=== PATIENT | male | born 1955 | race Caucasian/White ===

== ENCOUNTER 2018-04-07 08:32 | Day surgery (SDC) | payer BC ==
[2018-04-06 11:51] VITALS: BMI 32.3
[2018-04-07] MEDS ORDERED: Oxymetazoline HCl 0.05% ( 15 ML ) ONE ×2 (09:23→11:34)
[2018-04-07] MEDS ORDERED: Midazolam HCl 2 mg/2 ml Vial ONE (10:13)
[2018-04-07 10:40] LABS: Anion Gap 12 mmol/L (10-20); BUN (Urea Nitrogen) 14 mg/dL (8.4-25.7); Calc. Creatinine Clearance 136 mL/min (70-130); Calcium 9.6 mg/dL (7.8-10.44); Carbon Dioxide 26 mmol/L (23-31); Chloride 105 mmol/L (98-107); Estimated GFR-MDRD Greater than 90; Glucose 100 mg/dL (80-115); Potassium 3.7 mmol/L (3.5-5.1); Sodium 139 mmol/L (136-145)
[2018-04-07] MEDS ORDERED: Bacitracin Zinc Ointment 30 gm TUBE ONE (11:34)
[2018-04-07] MEDS ORDERED: Lidocaine 1% w/Epinephrine 1:100K 30 ML VIAL ONE (11:34)
[2018-04-07] MEDS ORDERED: Fentanyl 250 MCG/5 ML VIAL ONE (11:37)
--- NOTE | 2018-04-07 12:20 | EKG ---
Test Reason : PREOP Blood Pressure : / mmHG Vent. Rate : 075 BPM Atrial Rate : 075 BPM P-R Int : 174 ms QRS Dur : 126 ms QT Int : 404 ms P-R-T Axes : 044 004 035 degrees QTc Int : 451 ms Sinus rhythm with occasional Premature ventricular complexes and Premature atrial complexes Non-specific intra-ventricular conduction block Abnormal ECG No previous ECGs available Confirmed by MENDEL FREEMAN ([id number]) on 04/07/2018 12:20:04 PM Referred By: KUSHAL Confirmed By:MENDEL FREEMAN
[2018-04-07] MEDS ORDERED: Fentanyl 100 MCG/2 ML VIAL ONE (12:54)
[2018-04-07] MEDS ORDERED: Lidocaine 1% PF 5 ML VIAL ONE (14:34)
[2018-04-07] MEDS ORDERED: PROPOFOL 200 MG/20 ML VIAL ONE (14:34)
[2018-04-07] MEDS ORDERED: ePHEDrine/0.9% NaCl/PF SYRINGE 50 mg/10 ml ONE (14:34)
[2018-04-07] MEDS ORDERED: Dexamethasone 20 MG/5 ML VIAL ONE (14:34)
[2018-04-07] MEDS ORDERED: Succinylcholine Chloride 20 MG/ML 10 ml SYRINGE FS ONE (14:34)
[2018-04-07] MEDS ORDERED: Ondansetron HCl/PF 4 MG/2 ML Vial ONE (14:34)
--- NOTE | 2018-04-07 18:51 | OP ---
PREOPERATIVE DIAGNOSES: 1. Chronic rhinosinusitis. 2. Nasal septal deviation. 3. Bilateral inferior turbinate hypertrophy. 4. Nasal obstruction. POSTOPERATIVE DIAGNOSES: 1. Chronic rhinosinusitis. 2. Nasal septal deviation. 3. Bilateral inferior turbinate hypertrophy. 4. Nasal obstruction. PROCEDURES: 1. Bilateral endoscopic sinus surgery, total ethmoidectomies. 2. Bilateral endoscopic sinus surgery, maxillary antrostomies. 3. Bilateral endoscopic sinus surgery, frontal sinusotomies. 4. Nasal septoplasty. 5. Bilateral inferior turbinate submucosal resection. SURGEON: Ricki Person M.D. ESTIMATED BLOOD LOSS: 0 mL COMPLICATIONS: None. ANESTHESIA: GETA. PROCEDURE IN DETAIL: Patient was taken to the operating room and placed supine on the table. General endotracheal anesthesia was obtained by the Anesthesia staff. Tube was secured in the left lower lip. Patient was then placed in the beach chair position, and Afrin pledgets were p laced in the nasal cavity. Injections of 1% lidocaine with 1:100,000 epinephrine were made into the nasal septum as well as the inferior turbinates. Patient was then prepped and draped in standard surg ical fashion for nasal surgery. Following this, the Afrin pledgets were removed. A So[place] incision w as made on the left nasal septum. Submucoperichondrial dissection was performed. The deviated portio ns of the septum included portions of the cartilage and the bony septum. These isolated areas were re moved using three cutting rongeurs. There was noted to be a large dorsal and caudal strut, left intac t for support of the nose. The mucoperichondrial flaps were then reapproximated using a 4-0 gut stitc h. Any straight pieces of cartilage were crushed prior to this and placed between the mucoperichondr ial flaps. Following this, the inferior turbinates were then punctured with a submucosal coblation wa nd, and submucosal coblations were performed of multiple areas of the inferior portion of the anterio r inferior turbinate. Please note that the submucosal microdebrider was used to submucosally resect the anterior and inferi or portions of the inferior turbinates bilaterally. Following this, inferior turbinates were lateral ly fractured with a Gillett elevator. Following this, the 0 degree scope was advanced into the middle meatus, middle turbinate was gently medialized using a Gillett elevator. The ball-ended probe was then used to anteriorly fracture the uncinate process bilaterally. Using the straight and curved microde brider, the uncinate process was removed and the natural maxillary ostia was identified bilaterally a nd was widened using the curved microdebrider and straight Blakesley forceps bilaterally. Following this, the ethmoidal bulla was identified bilaterally and was punctured on its medial and inferior asp ect with the 0 degree microdebrider. Ethmoidal bulla was removed. Following this, the grand lamella was identified and a blunt ended puncture was made into the posterior ethmoidal cells. Working from posterior to anterior, the ethmoidal cells were opened in a mucosal-sparing technique. Following th is, the 45-degree scope and the 40-degree microdebrider blade were further used to open the frontal r ecess cells exposing the frontal ostia bilaterally. The frontal ostia was then widened bilaterally u sing the curved microdebrider. Following this, the nasal cavity was irrigated. Mirapex were placed. Vieyra splints were placed and secured.
== END 2018-04-07 14:19 | disposition home or self-care (01) ==
LOC: SDC 08:32
PROVIDERS: ATTEND Otolaryngology Plastic Surgery within the Head & Neck
PROC: 09BV8ZZ Excision of Left Ethmoid Sinus, Via Natural or Artificial Opening Endoscopic (ICD-10-PCS; principal; 2018-04-07)
PROC: 09BM8ZZ Excision of Nasal Septum, Via Natural or Artificial Opening Endoscopic (ICD-10-PCS; principal; 2018-04-07)
PROC: 09BU8ZZ Excision of Right Ethmoid Sinus, Via Natural or Artificial Opening Endoscopic (ICD-10-PCS; principal; 2018-04-07)
PROC: 09BL8ZZ Excision of Nasal Turbinate, Via Natural or Artificial Opening Endoscopic (ICD-10-PCS; principal; 2018-04-07)
DX: J32.0 Chronic maxillary sinusitis (principal); J32.1 Chronic frontal sinusitis; J32.3 Chronic sphenoidal sinusitis; J34.2 Deviated nasal septum; J32.2 Chronic ethmoidal sinusitis; J34.3 Hypertrophy of nasal turbinates; R42 Dizziness and giddiness; I10 Essential (primary) hypertension; E78.00 Pure hypercholesterolemia, unspecified; Z79.899 Other long term (current) drug therapy
CPT/HCPCS: 80048; 93005; 93010; 96374; J1100; J2001; J2250; J2405; J2704; J3010

== ENCOUNTER 2019-08-22 16:25 | Outpatient (CLI) | payer MEDICARE | END 2019-08-22 16:26 | disposition home or self-care (01) | LOC: CTENTCT 16:25 | PROVIDERS: ATTEND Otolaryngology Plastic Surgery within the Head & Neck | DX: J32.9 Chronic sinusitis, unspecified (principal) | CPT/HCPCS: 70486 ==

== ENCOUNTER 2019-09-15 08:35 | Outpatient (CLI) | payer MEDICARE ==
--- NOTE | 2019-09-15 14:08 | MRI ---
MRI CERVICAL SPINE WITHOUT CONTRAST: 09/15/2019 HISTORY: A 63-year-old male with ICD-10: M50.20, other cervical degenerative disk disease, unspecified cervic al region. Cervicalgia. COMPARISON: None. FINDINGS: Vertebral body heights are maintained. Cervical spinal cord is normal in size and signal. Images are degraded by patient motion. Disk space narrowing is mild to moderate at C5-C6 and C6-C7. There are un cinate process osteophytes encroaching upon the bilateral neural foramina to varying degrees at diffe rent levels. Broad-based disk-osteophytic bar complexes encroach upon the anterior aspect of the spin al canal to varying degrees at different levels, especially at C5-C6 and C6-C7. There is multilevel b ilateral mild and moderate facet DJD. C1-C2: No central stenosis. C2-C3: No central stenosis. Mild bilateral neural foraminal stenosis. C3-C4: Mild to moderate central spinal canal stenosis. Severe bilateral neural foraminal stenosis. C4-C5: Large right uncinate process osteophytes cause very severe right neural foraminal stenosis and effacement of the right side of the spinal canal and thecal sac. Moderate central spinal canal steno sis. Ligamentum flavum thickening. Severe left neural foraminal stenosis, to a lesser degree than the right. C5-C6: Mild to moderate central spinal canal stenosis. Moderate to severe right neural foraminal sten osis. Severe left neural foraminal stenosis. C6-C7: Mild to moderate central spinal canal stenosis. Severe right neural foraminal stenosis. Modera te to severe left neural foraminal stenosis. C7-T1: No central stenosis. Mild right neural foraminal stenosis. Mild to moderate left neural forami nal stenosis. IMPRESSION: 1. Cervical spondylosis with multilevel mild and moderate degenerative disease and multilevel mild an d moderate facet osteoarthrosis. 2. Multilevel bilateral severe neural foraminal stenosis. POS: TPC
--- NOTE | 2019-09-15 15:27 | NM ---
NUCLEAR MEDICINE BRAIN TOMOGRAPHIC IMAGING: HISTORY: Parkinson's disease. TECHNIQUE: A nuclear medicine tomographic brain scan was performed with administration of 4.5 millicuries of I-1 23 Ioflupane. FINDINGS: Uptake of the radiopharmaceutical was seen in a round configuration within both basal ganglia rather than a comma shaped configuration. IMPRESSION: The uptake in the basal ganglia is consistent with parkinsonian syndrome. POS: CET
== END 2019-09-15 08:36 | disposition home or self-care (01) ==
LOC: NM 08:35
PROVIDERS: ATTEND Psychiatry & Neurology Neurology
DX: G20 Parkinson's disease (principal); M50.20 Other cervical disc displacement, unspecified cervical region; M47.812 Spondylosis without myelopathy or radiculopathy, cervical region; M48.02 Spinal stenosis, cervical region
CPT/HCPCS: 72141; 78803; A9584

== ENCOUNTER 2024-03-04 17:31 | Inpatient (IN) | payer MEDICARE ==
[2024-03-04] MEDS ORDERED: Cefepime 2 GM VIAL ONE (17:58)
[2024-03-04 18:36] LABS: #Basophils Less than 0.03 10x3/uL (0.0-0.2); #Eosinphils Less than 0.03 10x3/uL (0.0-0.7); %Basophils 0.2 % (0.0-1.0); %Eosinophils 0.1 % (0.0-10.0); %Monocytes 8.2 % (0.0-10.0); %Neutrophils 78.4 % (42.0-75.0); Hematocrit 29.1 % (42.0-52.0); Hemoglobin 9.7 g/dL (14.0-18.0); Mean Corpuscular HGB CONC 33.3 g/dL (32.0-36.0); Mean Corpuscular Hemoglobin 27.8 pg (27.0-31.0); Mean Corpuscular Volume 83.4 fL (78.0-98.0); Mean Platelet Volume 9.2 fL (7.4-10.4); Platelet Count 301 10x3/uL (130-400); RBC Distribution Width 14.1 % (11.5-14.5); Red Blood Cell (RBC) Count 3.49 mill/uL (4.70-6.10)
[2024-03-04 18:55] LABS: ALT (SGPT) 90 U/L (8-55); AST (SGOT) 101 U/L (5-34); Albumin 2.4 g/dL (3.4-4.8); Alkaline Phosphatase 338 U/L (40-110); Anion Gap 7 mmol/L (10-20); BUN (Urea Nitrogen) 17 mg/dL (8.4-25.7); Bilirubin, Total 0.5 mg/dL (0.2-1.2); Calc. Creatinine Clearance 0 mL/min (70-130); Calcium 8.6 mg/dL (7.8-10.44); Carbon Dioxide 24 mmol/L (23-31); Chloride 99 mmol/L (98-107); Estimated GFR 101; Globulin 3.1 g/dL (2.4-3.5); Glucose 135 mg/dL (80-115); Lipase 21 U/L (8-78); Potassium 3.2 mmol/L (3.5-5.1); Protein, Total 5.5 g/dL (5.8-8.1); Sodium 127 mmol/L (136-145)
[2024-03-04 19:00] LABS: Troponin I 0.013 ng/mL (< 0.028)
[2024-03-04 19:05] LABS: Bilirubin Negative (Negative); Blood, Urine Negative (Negative); CAUTI Indications for Culture Alt mental st,lethar; Clarity Clear (Clear); Glucose, Urine (Dipstick) Normal (Negative); Ketone, Urine Negative (Negative); Leukocyte Negative Leu/uL (Negative); Nitrite Negative (Negative); Protein, Urine (Dipstick) Negative (Neg-Trace); RBC/HPF 0-3 HPF (0-3); Squamous Epithelial None Seen HPF (0-3); Urobilinogen Normal mg/dL (Less than 2); WBC/HPF 0-3 HPF (0-3)
[2024-03-04 19:09] LABS: Bacteria/HPF 1+ HPF (None Seen)
[2024-03-04 19:10] LABS: Urine Culture Reflex No No
[2024-03-04 19:57] LABS: Influenza A by NAA Not Detected (NotDetected); Influenza B by NAA Not Detected (NotDetected); SARS-CoV-2 NAA Rapid Test Not Detected (NotDetected)
[2024-03-04] MEDS ORDERED: Acetaminophen 500 MG TAB ONE (20:04)
[2024-03-04] MEDS ORDERED: Ondansetron PF 4 MG/2 ML Vial IVP PRN (20:33)
[2024-03-04] MEDS ORDERED: Ondansetron ODT 4 MG TAB PO PRN (20:33)
[2024-03-04] MEDS ORDERED: Acetaminophen 650 MG Suppository PR PRN (20:33)
[2024-03-04] MEDS ORDERED: Electrolyte Replacement Protocol 1 EACH FS SCH (20:45)
[2024-03-04] MEDS: Vancomycin (BATCH) 2 GM in Premix 1 BAG IVPB SCH (21:43)
[2024-03-04] MEDS: Lactated Ringer's 1,000 ML IV SCH (22:02)
[2024-03-04] MEDS ORDERED: Polyethylene Glycol 3350 17 GM Packet PO PRN (22:09)
[2024-03-04 22:49] LABS: Magnesium 1.7 mg/dL (1.6-2.6)
[2024-03-04] MEDS: Potassium Chloride 20 MEQ TAB PO SCH (23:04)
[2024-03-04] MEDS: Polyethylene Glycol 3350 17 GM Packet PO SCH (23:04)
[2024-03-05] MEDS: Carbidopa/Levodopa 25-100 mg Tablet PO SCH ×2 (01:18→05:54)
[2024-03-05 01:32] VITALS: BMI 31.1
[2024-03-05 04:53] LABS: Anion Gap 7 mmol/L (10-20); BUN (Urea Nitrogen) 12 mg/dL (8.4-25.7); Calc. Creatinine Clearance 174 mL/min (70-130); Calcium 8.1 mg/dL (7.8-10.44); Carbon Dioxide 23 mmol/L (23-31); Chloride 112 mmol/L (98-107); Estimated GFR 107; Glucose 92 mg/dL (80-115); Magnesium 1.8 mg/dL (1.6-2.6); Potassium 3.2 mmol/L (3.5-5.1); Sodium 139 mmol/L (136-145)
[2024-03-05 04:59] LABS: #Basophils Less than 0.03 10x3/uL (0.0-0.2); %Basophils 0.2 % (0.0-1.0); %Eosinophils 0.6 % (0.0-10.0); %Lymphocytes 18.1 % (21.0-51.0); %Monocytes 9.4 % (0.0-10.0); %Neutrophils 69.8 % (42.0-75.0); Hematocrit 26.3 % (42.0-52.0); Hemoglobin 8.6 g/dL (14.0-18.0); Mean Corpuscular HGB CONC 32.7 g/dL (32.0-36.0); Mean Corpuscular Hemoglobin 28.2 pg (27.0-31.0); Mean Corpuscular Volume 86.2 fL (78.0-98.0); Mean Platelet Volume 9.1 fL (7.4-10.4); Platelet Count 271 10x3/uL (130-400); RBC Distribution Width 14.3 % (11.5-14.5); Red Blood Cell (RBC) Count 3.05 mill/uL (4.70-6.10)
[2024-03-05] MEDS: Magnesium 2 GM/50 ML(in water) 2 GM in Premix 1 BAG IVPB SCH (09:18)
[2024-03-05] MEDS: Potassium Chloride 20 MEQ TAB PO SCH ×2 (09:19→22:37)
[2024-03-05] MEDS: Enoxaparin 40 MG (0.4 mL) SYRINGE SC SCH (09:19)
[2024-03-05] MEDS: Zonisamide 25 MG CAP PO SCH (20:31)
[2024-03-05 21:56] LABS: Potassium 3.5 mmol/L (3.5-5.1)
[2024-03-06 04:15] LABS: #Basophils Less than 0.03 10x3/uL (0.0-0.2); %Basophils 0.2 % (0.0-1.0); %Eosinophils 1.5 % (0.0-10.0); %Monocytes 8.6 % (0.0-10.0); %Neutrophils 66.9 % (42.0-75.0); Hematocrit 28.3 % (42.0-52.0); Hemoglobin 9.1 g/dL (14.0-18.0); Mean Corpuscular HGB CONC 32.2 g/dL (32.0-36.0); Mean Corpuscular Hemoglobin 27.9 pg (27.0-31.0); Mean Corpuscular Volume 86.8 fL (78.0-98.0); Mean Platelet Volume 9.2 fL (7.4-10.4); Platelet Count 282 10x3/uL (130-400); RBC Distribution Width 14.5 % (11.5-14.5); Red Blood Cell (RBC) Count 3.26 mill/uL (4.70-6.10)
[2024-03-06 04:55] LABS: ALT (SGPT) 77 U/L (8-55); AST (SGOT) 92 U/L (5-34); Albumin 2.1 g/dL (3.4-4.8); Alkaline Phosphatase 258 U/L (40-110); Anion Gap 9 mmol/L (10-20); BUN (Urea Nitrogen) 9 mg/dL (8.4-25.7); Bilirubin, Total 0.4 mg/dL (0.2-1.2); Calc. Creatinine Clearance 171 mL/min (70-130); Calcium 8.3 mg/dL (7.8-10.44); Carbon Dioxide 22 mmol/L (23-31); Chloride 110 mmol/L (98-107); Estimated GFR 106; Globulin 2.7 g/dL (2.4-3.5); Glucose 85 mg/dL (80-115); Potassium 3.7 mmol/L (3.5-5.1); Protein, Total 4.8 g/dL (5.8-8.1); Sodium 137 mmol/L (136-145)
[2024-03-06] MEDS: Magnesium 2 GM/50 ML(in water) 2 GM in Premix 1 BAG IVPB SCH (09:02)
[2024-03-06] MEDS: Cefepime 2 GM in Sodium Chloride 0.9% 100 ML IVPB SCH (19:21)
[2024-03-06] MEDS: Acetaminophen 325 MG TAB PO PRN (20:35)
[2024-03-07 04:10] LABS: #Basophils Less than 0.03 10x3/uL (0.0-0.2); %Basophils 0.2 % (0.0-1.0); %Lymphocytes 19.6 % (21.0-51.0); %Monocytes 7.8 % (0.0-10.0); %Neutrophils 68.4 % (42.0-75.0); Hematocrit 30.3 % (42.0-52.0); Hemoglobin 9.8 g/dL (14.0-18.0); Mean Corpuscular HGB CONC 32.3 g/dL (32.0-36.0); Mean Corpuscular Hemoglobin 28.1 pg (27.0-31.0); Mean Corpuscular Volume 86.8 fL (78.0-98.0); Platelet Count 322 10x3/uL (130-400); RBC Distribution Width 14.5 % (11.5-14.5); Red Blood Cell (RBC) Count 3.49 mill/uL (4.70-6.10)
[2024-03-07 04:23] LABS: ALT (SGPT) 73 U/L (8-55); AST (SGOT) 82 U/L (5-34); Albumin 2.2 g/dL (3.4-4.8); Alkaline Phosphatase 247 U/L (40-110); Anion Gap 12 mmol/L (10-20); BUN (Urea Nitrogen) 9 mg/dL (8.4-25.7); Bilirubin, Total 0.5 mg/dL (0.2-1.2); Calc. Creatinine Clearance 162 mL/min (70-130); Calcium 8.4 mg/dL (7.8-10.44); Carbon Dioxide 22 mmol/L (23-31); Chloride 112 mmol/L (98-107); Estimated GFR 104; Globulin 2.9 g/dL (2.4-3.5); Glucose 86 mg/dL (80-115); Potassium 3.7 mmol/L (3.5-5.1); Protein, Total 5.1 g/dL (5.8-8.1); Sodium 142 mmol/L (136-145)
[2024-03-07 12:02] LABS: HBCM Index 0.06 S/CO (0-0.79); HBsAg Index 0.27 S/CO (0-0.99); Hep A IgM AB NONREACTIVE (NonReactive); Hep A IgM S/CO 0.16 S/CO (0-0.79); Hep B Surf Ag NONREACTIVE S/CO (NonReactive); Hep C IgG Ab NONREACTIVE S/CO (NonReactive); Hep C Index 0.05 S/CO (0-0.79); Hepatitis B Core IgM Abs NONREACTIVE S/CO (NonReactive)
[2024-03-07 16:07] VITALS: BMI 31.1
[2024-03-08 04:40] LABS: #Basophils 0.04 10x3/uL (0.0-0.2); %Basophils 0.5 % (0.0-1.0); %Eosinophils 1.6 % (0.0-10.0); %Monocytes 6.9 % (0.0-10.0); %Neutrophils 67.1 % (42.0-75.0); Hematocrit 30.9 % (42.0-52.0); Hemoglobin 9.9 g/dL (14.0-18.0); Mean Corpuscular Hemoglobin 27.3 pg (27.0-31.0); Mean Corpuscular Volume 85.1 fL (78.0-98.0); Mean Platelet Volume 9.2 fL (7.4-10.4); Platelet Count 345 10x3/uL (130-400); RBC Distribution Width 14.5 % (11.5-14.5); Red Blood Cell (RBC) Count 3.63 mill/uL (4.70-6.10)
[2024-03-08 05:13] LABS: ALT (SGPT) 49 U/L (8-55); AST (SGOT) 80 U/L (5-34); Albumin 2.3 g/dL (3.4-4.8); Alkaline Phosphatase 242 U/L (40-110); Anion Gap 9 mmol/L (10-20); BUN (Urea Nitrogen) 10 mg/dL (8.4-25.7); Bilirubin, Total 0.5 mg/dL (0.2-1.2); Calc. Creatinine Clearance 152 mL/min (70-130); Calcium 8.5 mg/dL (7.8-10.44); Carbon Dioxide 21 mmol/L (23-31); Chloride 109 mmol/L (98-107); Estimated GFR 102; Globulin 2.9 g/dL (2.4-3.5); Glucose 87 mg/dL (80-115); Protein, Total 5.2 g/dL (5.8-8.1); Sodium 135 mmol/L (136-145)
[2024-03-09 03:58] LABS: #Basophils 0.03 10x3/uL (0.0-0.2); %Basophils 0.4 % (0.0-1.0); %Eosinophils 1.1 % (0.0-10.0); %Lymphocytes 18.2 % (21.0-51.0); %Monocytes 7.8 % (0.0-10.0); %Neutrophils 71.2 % (42.0-75.0); Hemoglobin 10.4 g/dL (14.0-18.0); Mean Corpuscular HGB CONC 31.5 g/dL (32.0-36.0); Mean Corpuscular Hemoglobin 27.7 pg (27.0-31.0); Mean Corpuscular Volume 87.8 fL (78.0-98.0); Mean Platelet Volume 9.1 fL (7.4-10.4); Platelet Count 359 10x3/uL (130-400); RBC Distribution Width 14.6 % (11.5-14.5); Red Blood Cell (RBC) Count 3.76 mill/uL (4.70-6.10)
[2024-03-09 04:34] LABS: ALT (SGPT) 40 U/L (8-55); AST (SGOT) 56 U/L (5-34); Albumin 2.4 g/dL (3.4-4.8); Alkaline Phosphatase 235 U/L (40-110); Anion Gap 11 mmol/L (10-20); BUN (Urea Nitrogen) 9 mg/dL (8.4-25.7); Bilirubin, Total 0.6 mg/dL (0.2-1.2); Calc. Creatinine Clearance 157 mL/min (70-130); Calcium 8.9 mg/dL (7.8-10.44); Carbon Dioxide 23 mmol/L (23-31); Chloride 110 mmol/L (98-107); Estimated GFR 103; Globulin 3.1 g/dL (2.4-3.5); Glucose 84 mg/dL (80-115); Potassium 4.1 mmol/L (3.5-5.1); Protein, Total 5.5 g/dL (5.8-8.1); Sodium 140 mmol/L (136-145)
[2024-03-10 04:34] LABS: #Basophils 0.04 10x3/uL (0.0-0.2); %Basophils 0.5 % (0.0-1.0); %Eosinophils 1.1 % (0.0-10.0); %Lymphocytes 19.2 % (21.0-51.0); %Monocytes 9.8 % (0.0-10.0); %Neutrophils 67.6 % (42.0-75.0); Hematocrit 34.6 % (42.0-52.0); Hemoglobin 10.9 g/dL (14.0-18.0); Mean Corpuscular HGB CONC 31.5 g/dL (32.0-36.0); Mean Corpuscular Hemoglobin 26.7 pg (27.0-31.0); Mean Corpuscular Volume 84.6 fL (78.0-98.0); Mean Platelet Volume 9.3 fL (7.4-10.4); Platelet Count 375 10x3/uL (130-400); RBC Distribution Width 14.8 % (11.5-14.5); Red Blood Cell (RBC) Count 4.09 mill/uL (4.70-6.10)
[2024-03-10 05:00] LABS: ALT (SGPT) 43 U/L (8-55); AST (SGOT) 47 U/L (5-34); Albumin 2.5 g/dL (3.4-4.8); Alkaline Phosphatase 218 U/L (40-110); Anion Gap 11 mmol/L (10-20); BUN (Urea Nitrogen) 10 mg/dL (8.4-25.7); Bilirubin, Total 0.7 mg/dL (0.2-1.2); Calc. Creatinine Clearance 157 mL/min (70-130); Calcium 8.9 mg/dL (7.8-10.44); Carbon Dioxide 22 mmol/L (23-31); Chloride 110 mmol/L (98-107); Estimated GFR 103; Globulin 3.1 g/dL (2.4-3.5); Glucose 86 mg/dL (80-115); Potassium 3.8 mmol/L (3.5-5.1); Protein, Total 5.6 g/dL (5.8-8.1); Sodium 139 mmol/L (136-145)
[2024-03-10] MEDS: Carbidopa/Levodopa 25-100 mg Tablet PO SCH (17:46)
[2024-03-10 23:30] VITALS: BP 137/75; TEMP 97.6
[2024-03-11 08:03] LABS: #Basophils 0.03 10x3/uL (0.0-0.2); %Basophils 0.4 % (0.0-1.0); %Eosinophils 1.2 % (0.0-10.0); %Lymphocytes 15.3 % (21.0-51.0); %Monocytes 11.4 % (0.0-10.0); %Neutrophils 70.3 % (42.0-75.0); Hematocrit 35.2 % (42.0-52.0); Hemoglobin 11.1 g/dL (14.0-18.0); Mean Corpuscular HGB CONC 31.5 g/dL (32.0-36.0); Mean Corpuscular Hemoglobin 27.8 pg (27.0-31.0); Mean Platelet Volume 9.5 fL (7.4-10.4); Platelet Count 411 10x3/uL (130-400); RBC Distribution Width 14.6 % (11.5-14.5)
[2024-03-11 08:11] LABS: ALT (SGPT) 42 U/L (8-55); AST (SGOT) 53 U/L (5-34); Albumin 2.6 g/dL (3.4-4.8); Alkaline Phosphatase 203 U/L (40-110); Anion Gap 11 mmol/L (10-20); BUN (Urea Nitrogen) 12 mg/dL (8.4-25.7); Bilirubin, Total 0.7 mg/dL (0.2-1.2); Calc. Creatinine Clearance 154 mL/min (70-130); Calcium 9.2 mg/dL (7.8-10.44); Carbon Dioxide 23 mmol/L (23-31); Chloride 107 mmol/L (98-107); Estimated GFR 103; Globulin 3.4 g/dL (2.4-3.5); Glucose 89 mg/dL (80-115); Potassium 3.9 mmol/L (3.5-5.1); Sodium 137 mmol/L (136-145)
== END 2024-03-11 17:50 | DRG 871 ==
LOC: ERS 17:31 → 2NO 20:01 → OBSVTOIN 03-07 10:50
PROVIDERS: ADMIT Student in an Organized Health Care Education/Training Program; ATTEND Internal Medicine
DX: A41.9 Sepsis, unspecified organism (principal); J18.9 Pneumonia, unspecified organism; E87.1 Hypo-osmolality and hyponatremia; G20.A1 Parkinson's disease without dyskinesia, without mention of fluctuations; G47.33 Obstructive sleep apnea (adult) (pediatric); E78.5 Hyperlipidemia, unspecified; I10 Essential (primary) hypertension; G89.29 Other chronic pain; L89.322 Pressure ulcer of left buttock, stage 2; L89.312 Pressure ulcer of right buttock, stage 2; M54.9 Dorsalgia, unspecified; M19.90 Unspecified osteoarthritis, unspecified site; D64.9 Anemia, unspecified; R33.9 Retention of urine, unspecified; K59.00 Constipation, unspecified; R74.01 Elevation of levels of liver transaminase levels; Z88.8 Allergy status to other drugs, medicaments and biological substances; Z79.82 Long term (current) use of aspirin; Z79.899 Other long term (current) drug therapy
CPT/HCPCS: 36415; 51702; 71045; 76705; 80053; 80074; 81001; 83605; 83690; 83735; 84443; 84484; 85025; 86141; 87040; 87077; 87086; 87149; 87177; 87186; 87328; 87329; 93005; 96365; 96375; 97139; J0692; J1650; J3370; J3475; J3490; J7120